=== PATIENT | female | born 1965 | race Caucasian/White ===

== ENCOUNTER → 2023-01-14 15:34 | Outpatient (BNVA) | payer BC, MEDICAID, SELFPAY | PROVIDERS: PCP Nurse Practitioner Family; Visit Provider Nurse Practitioner Family | DX: R07.9 Chest pain, unspecified (principal); L98.9 Disorder of the skin and subcutaneous tissue, unspecified; I10 Essential (primary) hypertension | CPT/HCPCS: 80053; 84484; 85025 ==

== ENCOUNTER 2023-02-02 13:22 | Outpatient (CLI) | payer BC, MEDICAID, SELFPAY ==
--- NOTE | 2023-02-02 13:53 | MM_ITS ---
WS: [id number] BILATERAL 3D TOMOSYNTHESIS DIGITAL SCREENING MAMMOGRAPHY WITH CAD CLINICAL INFORMATION: Z12.39 - Encounter for other screening for malignant neop... HISTORY: Screening mammogram. No current complaints. COMPARISON: None. TECHNIQUE: Bilateral CC and MLO views. FINDINGS: Scattered fibroglandular densities bilaterally. No suspicious focal mass, asymmetry, calcifications, or architectural distortion. No evidence of malignancy. MM/[place] [id number] IMPRESSION: BI-RADS: 1-Negative FOLLOW UP: 1 Year Follow-up Recommend return to annual screening mammography.
--- NOTE | 2023-02-02 15:00 | CT_ITS ---
WS: [id number] LDCT LUNG CANCER SCREENING HISTORY: Z12.2 - Encounter for screening for malignant neoplasm TECHNIQUE: Axial imaging performed from the apices to 1 cm below the costophrenic angles. Coronal and sagittal reformats are submitted with axial MIP series. All CT scans at [facility] use at least one of these dose optimization techniques: automated exposure control; mA and/or kV adjustment per patient size (includes targeted exams where dose is matched to clinical indication); or iterativ e reconstruction. DLP: 53.79 mGy.cm DIvol: Mean CTDIvol: 1.00 (mGy) COMPARISON: None available. Lungs: Biapical pleural thickening and scarring. 10 mm lobulated mass LEFT apex. No additional mass i s identified. Moderate centrilobular emphysema. No endobronchial lesion. Heart: Normal size heart with no pericardial effusion.. Other findings: No adenopathy. Mild atherosclerosis aorta. Normal size pulmonary artery. No adrenal m ass. Mild increase in thoracic kyphosis. Schmorl's node defects. Mild anterior wedging of T7, T8 and T10. CT/CT lung screening [id number] IMPRESSION: LUNG-RADS: 4A-Probably Suspicious FOLLOW UP: 3 Month LDCT OTHER FINDINGS (S MODIFIER): None. 3 month low-dose CT follow-up versus PET CT.
== END 2023-02-02 13:23 | disposition home or self-care (01) ==
LOC: RAD 13:26
PROVIDERS: PCP Nurse Practitioner Family; Visit Provider Nurse Practitioner Family
DX: Z12.31 Encounter for screening mammogram for malignant neoplasm of breast (principal); Z12.2 Encounter for screening for malignant neoplasm of respiratory organs
CPT/HCPCS: 71271; 77063; 77067

== ENCOUNTER 2023-02-18 16:27 | Outpatient (CLI) | payer BC, MEDICAID, SELFPAY ==
--- NOTE | 2023-02-18 17:00 | CT_ITS ---
WS: [id number] CT CHEST TECHNIQUE: Noncontrast CT of the chest with coronal and sagittal reformatted images. CLINICAL INFORMATION: abnormal Lung finding COMPARISON: None. DLP: All CT scans at [facility] use at least one of these dose optimization techniques: automated e xposure control; mA and/or kV adjustment per patient size (includes targeted exams where dose is matc hed to clinical indication); or iterative reconstruction. FINDINGS: Stable appearing spiculated lesion LEFT lung apex measuring 10 mm. This is similar to prior examinati ons. Moderate chronic emphysematous changes. No mediastinal or hilar lymphadenopathy. Moderate thoracic kyphosis. Schmorl's nodes in the mid thoracic spine with chronic anterior wedging. Pleural thickening in the lung apices. Hepatomegaly. Cholecystectomy clips. Adrenal glands are normal. CT/CT chest ION (PULM ONLY) [id number] IMPRESSION: Images obtained for intraoperative navigation.
== END 2023-02-18 16:28 | disposition home or self-care (01) ==
LOC: RAD 16:30
PROVIDERS: PCP Nurse Practitioner Family; Visit Provider Internal Medicine Pulmonary Disease
DX: J43.9 Emphysema, unspecified (principal); R91.8 Other nonspecific abnormal finding of lung field; R09.89 Other specified symptoms and signs involving the circulatory and respiratory systems
CPT/HCPCS: 36415; 71250; 82785; 86003

== ENCOUNTER 2023-03-07 05:36 | Outpatient (CLI) | payer BC, MEDICAID, SELFPAY ==
--- NOTE | 2023-03-07 08:00 | PETR_ITS ---
PROCEDURE INFORMATION: Exam: PET/CT Skull Base to Mid-thigh Exam date and time: 03/07/2023 9:22 AM Age: 57 years old Clinical indication: Abnormal findings; CT chest 02/19; Additional info: 10 mm lobulated mass left apex. LABS AND CLINICAL REPORTS: Glucose: 110 mg/dl Treatment strategy for malignancy (PET staging): Initial Staging (PI) TECHNIQUE: Imaging protocol: Following at least four-hour fasting and following the injection of radiopharmaceutical, low dose CT images were obtained. Then, PET images were obtained. Attenuation corrected images were constructed using the CT scan. Fused images of PET and CT were reviewed. The standardized uptake values (SUV) reported below are maximum values within a region of interest, expressed in gm/ml. Exam includes orbital meatal line to mid-thigh. Radiopharmaceutical: 11.63 mCi F-18 FDG (Fluorodeoxyglucose), IV. Time of imaging post radiopharmaceutical administration: 1 hour Injection site: Right antecubital COMPARISON: CT chest ION (PULM ONLY) [id number] 02/18/2023 4:39 PM, CT lung screening 02/02/2023 FINDINGS: Brain: Visualized brain has normal physiologic uptake. Pharynx: Physiologic appearing uptake in the region of the vocal cords and cricoid cartilage. Larynx: No abnormal uptake. Lungs, pleura and trachea: Mild bilateral centrilobular emphysematous changes are present. A solid nodule in the left lung apex measures 1.0 x 0.8 cm on series 3, image 37, SUV max 0.9. Heart: Normal physiologic uptake. Mediastinal space: No abnormal uptake. Liver: No abnormal uptake. Gallbladder and bile ducts: No abnormal uptake. Cholecystectomy clips are present. Pancreas: No abnormal uptake. Spleen: No abnormal uptake. Adrenal glands: No abnormal uptake. Kidneys and ureters: Normal physiologic uptake. Stomach and bowel: No abnormal uptake. Physiologic appearing uptake in the region of the ileocecal valve. Benign-appearing fat deposition in the wall of the right colon in its noted. In the region of the inferior cecum and intraluminal possible rounded soft tissue density nodule along the inferior margin of the ileocecal valve measuring 1.5 cm in diameter on series 3, image 124 is noted, SUV max 7.1. Reproductive: The uterus is not identified, likely surgically absent. No abnormal uptake. Vasculature: No abnormal uptake. There are diffuse atherosclerotic changes. Lymph nodes: No abnormal uptake. No lymphadenopathy in the head, neck, chest, abdomen, pelvis, and extremities. Bones/joints: No abnormal uptake in the visualized axial and appendicular skeleton. Mild diffuse degenerative changes in the spine are present. Moderate thoracic spine kyphosis. Soft tissues: No abnormal uptake in the visualized head, neck, chest, abdomen, pelvis, and extremities. METRICS: Mediastinal blood pool: SUV max 1.7 PET/PET skulltothigh INITIAL [id number] IMPRESSION: 1. A left upper lobe nodule noted on the prior examinations is not radiotracer avid which favors a benign etiology. Non hypermetabolic neoplastic etiologies cannot be entirely excluded from this exam. Consider 3 month follow-up CT for further surveillance. 2. Uptake in the region of the ileocecal valve is noted which appears physiologic. There is a possible intraluminal nodule inferior to the ileocecal valve with elevated uptake (SUV max 7.1). This may represent physiologic uptake, however localized inflammatory, infectious or malignant etiologies cannot be excluded. Evaluation of the bowel wall is limited without intraluminal contrast. 3. Additional nonurgent findings as detailed above.
== END 2023-03-07 05:37 | disposition home or self-care (01) ==
LOC: RAD 03-09 05:37
PROVIDERS: PCP Nurse Practitioner Family; Visit Provider Internal Medicine Pulmonary Disease
DX: R91.8 Other nonspecific abnormal finding of lung field (principal); R91.1 Solitary pulmonary nodule
CPT/HCPCS: 78815; A9552

== ENCOUNTER → 2023-04-22 09:48 | Outpatient (BNVA) | payer BC, MEDICAID, SELFPAY | PROVIDERS: PCP Nurse Practitioner Family; Visit Provider Nurse Practitioner Family | DX: R53.83 Other fatigue (principal); R53.1 Weakness; R91.1 Solitary pulmonary nodule; Z12.11 Encounter for screening for malignant neoplasm of colon | CPT/HCPCS: 80053; 80061; 82306; 82607; 83540; 84443; 85025 ==

== ENCOUNTER 2023-05-18 10:16 | Oncology outpatient (recurring) (ONCR) | payer BC, MEDICAID, SELFPAY | END 2023-05-28 23:59 | disposition home or self-care (01) | PROVIDERS: PCP Nurse Practitioner Family; Visit Provider Internal Medicine Medical Oncology | DX: D50.9 Iron deficiency anemia, unspecified (principal) ==

== ENCOUNTER 2023-06-22 10:08 | Emergency (ER) | payer BC, MEDICAID, SELFPAY ==
[2023-06-22 10:32] VITALS: BP 137/91; PULSE 95; RESP 16; TEMP 37; O2SAT 97; BMI 23.3
--- NOTE | 2023-06-22 10:36 | XRR_ITS ---
PROCEDURE INFORMATION: Exam: XR Chest Exam date and time: 06/22/2023 10:54 AM Age: 57 years old Clinical indication: Cough and shortness of breath; Patient HX: Lillie mcqueen TECHNIQUE: Imaging protocol: Radiologic exam of the chest. Views: 1 view. COMPARISON: CT chest ION (PULM ONLY) [id number] 02/18/2023 4:39 PM FINDINGS: Lungs: Unremarkable. No consolidation. Pleural spaces: Unremarkable. No pleural effusion. No pneumothorax. Heart/Mediastinum: Unremarkable. No cardiomegaly. Bones/joints: Mild scoliosis. XR/XR chest 1V portable [id number] IMPRESSION: No acute findings.
--- NOTE | 2023-06-22 11:02 | W.ED.COVID ---
HPI - COVID General: Chief Complaint: COVID symptoms Stated Complaint: covid+ Time Seen by Provider: 06/22/23 10:36 Source: patient Mode of arrival: ambulatory Limitations: no limitations Triage information: Has fever, cough or shortness of breath. No known COVID + exposure last 14 days History of Present Illness: Patient is a nice 57-year-old female with a history of HTN and COPD here after testing positive via home rapid antigen test on Thursday. 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 She states since then she has had body aches, cough, congestion. She states she tested herself on Thursday and was positive. She states she was told to come here by her work. complaint: known COVID positive Prior covid testing: yes, results known COVID 19 common symptoms: positive fever(s), non-productive cough, body aches, headache(s), loss of sense of smell and/or taste, throat pain, nasal congestion and nausea; negative vomiting or diarrhea COVID 19 other sytmptoms: negative chest pain or dizziness Onset (ago): day(s) Severity: mild Pertinent comorbid conditions: hypertension and COPD/respiratory disease Treatment prior to arrival: none COVID Results: No Data to Display Review of Systems Const: Reports: fever(s) and body aches Eyes: Denies: change in vision, blurry vision, photophobia, floaters or seeing flashes ENMT: Reports: throat pain, odynophagia and nasal congestion; Denies: ear or mastoid pain, nasal discharge or sinus pain Card: Denies: chest pain, palpitations, irregular heart rhythm, edema, swelling of feet/ankles, lightheadedness, syncope, pre-syncope, dyspnea on exertion, orthopnea, leg pain with exertion or acrocyanosis Resp: Reports: non-productive cough and chest congestion; Denies: wheezing or hemoptysis GI: Reports: nausea; Denies: abdominal pain, vomiting or diarrhea : Denies: flank pain, difficulty voiding, dysuria, urinary frequency, urinary urgency or urinary hesitancy Musc: Denies: neck pain, back pain, extremity pain or joint pain Skin/Breast: Denies: rash Neuro: Reports: headache(s); Denies: numbness in extremities, weakness in extremities, sensory changes or dizziness [facility] PFSH: Medical History Hypertension Social History Smoking and tobacco status: current every day smoker cigarettes Packs smoked per day: 1 Years cigarettes smoked: 40 [ Other cigarette details: currently smoking 0.5 ppd.] Second hand smoke exposure: Yes Smoking risk assessment/counseling performed?: No Alcohol intake: never Desire information about alcohol rehabilitation?: No Counseling given: No Substance/Drug Use: never Desire information about substance/drug rehabilitation?: No Counseling given: No Adopted: No Caregiver/support person: No Lives independently: Yes Household members: family Housing: House Marital status: Number of children: 3 Highest education level completed: Associate Degree: Occupational, Technical, Vocational Program service: No Current occupational status: unemployed Physical Exam Const: COMMON NORMALS: no acute distress, average body habitus, patient oriented x3, no limitations, healthy appearing, alert and well nourished GENERAL APPEARANCE: cooperative ORIENTATION/CONSCIOUSNESS: Yes awake, Yes oriented to person, Yes oriented to place and Yes oriented to time HENMT: COMMON NORMALS: normocephalic and atraumatic HEAD & SCALP: normal to inspection, normocephalic and atraumatic Eye: GENERAL EYE: appearance normal, both eyes and all related structures Neck/C-Spine: COMMON NORMALS: full ROM, no lymphadenopathy, no meningeal signs and no JVD Chest: COMMONS NORMALS: normal inspection of the chest and normal palpation of entire chest wall Resp: COMMON NORMALS: normal respiratory effort and clear to auscultation bilaterally AUSCULTATION: clear to auscultation bilaterally Cardio: COMMON NORMALS: no JVD, regular rate and regular rhythm RATE: regular rate RHYTHM: regular rhythm Extremity: GENERAL: Yes normal exam except as noted Neuro: MELONY COMA SCALE: document GCS findings Branch coma scale eye opening: Spontaneous Melony coma scale verbal response: Orientated Melony coma scale motor response: Obey commands Melony coma scale total score: 15 COMMON NORMALS: patient oriented x3, CN's II-XII intact bilaterally, moves all extremities, no focal motor deficits, no sensory deficits noted and gait normal SENSORIUM/ORIENTATION: Yes alert, Yes oriented to person, Yes oriented to place and Yes oriented to time MENINGEAL SIGNS: Yes no meningeal signs Skin: COMMON NORMALS: no rashes or lesions noted GENERAL SKIN EXAM: no rashes or lesions noted Course Vital Signs: Vital signs: Vital Signs Temperature 98.6 F 06/22/23 10:32 Pulse Rate 95 06/22/23 10:32 Respiratory Rate 16 06/22/23 10:32 Blood Pressure 137/91 06/22/23 10:32 Pulse Oximetry 97 06/22/23 10:32 Oxygen Delivery Me thod Room Air 06/22/23 10:32 [facility] - COVID Medical Decision Making Patient appears in no acute distress. Her vital signs are stable. CXR is normal. At this point there is no need to confirm positive test. She will be placed on oral Paxlovid and Dexamethasone given her history of HTN and COPD. Recommend monitoring symptoms closely. Return ED precautions given. Lab Data Radiology Impressions Chest X-Ray 06/22/23 10:36 IMPRESSION: No acute findings. No Data to Display All radiology interpretation(s) finalized by discharge Discharge Plan Discharge Patient Disposition: Home Clinical Impression: Suspected severe acute respiratory syndrome coronavirus 2 (SARS-CoV-2) infection Condition: Stable Prescriptions: New dexamethasone 6 mg tablet 6 mg PO DAILY Qty: 6 0RF Paxlovid 300 mg (150 mg x 2)-100 mg tablets,dose pack See Rx Instructions .ROUTE .COMPLEX Qty: 30 0RF Rx Instructions: take TWO 150 mg tablets of nirmatrelvir with ONE 100 mg tablet of ritonavir twice daily for 5 days No Action cholecalciferol (vitamin D3) 1,250 mcg (50,000 unit) capsule 50,000 unit PO .weekly Qty: 4 2RF albuterol 90 mcg/actuation aerosol 90 mcg inhalation DAILY budesonide-formoterol 80-4.5 mcg/actuation HFA aerosol inhaler 2 puff inhalation BID nitroglycerin 0.4 mg tablet, sublingual 0.4 mg sublingual Q5M PRN (Reason: chest pain) Qty: 30 2RF Rx Instructions: do not exceed 3 doses per episode mirtazapine 7.5 mg tablet 7.5 mg PO DAILY Qty: 30 2RF metoprolol succinate 50 mg tablet extended release 24 hr 50 mg PO BID Qty: 60 2RF lisinopril 40 mg tablet 40 mg PO DAILY Qty: 30 2RF simvastatin 40 mg tablet 40 mg PO DAILY Qty: 30 2RF Nicorette 2 mg mini lozenge 2 mg buccal Q8H PRN (Reason: nicotine cravings) Rx Instructions: buccally every q1-2h X 6 weeks, q2-4h X 3 weeks, q4-8h X 3 weeks, max 20 in 24 hours Discharge Orders: Discharge ED (Routine); Ordered 06/22/23 Ordered By: Collette Nunez Referrals: Val Mata FNP-C [Primary Care Provider] - Patient Instructions: COVID-19 (Coronavirus Disease 2019) (ED) Activity Restrictions/Additional Instructions: As we discussed a positive result via home antigen testing is confirmation of active COVID. Is no need to retest or verify today. As we discussed we are placing you on Paxlovid as well as steroids for treatment. You need to monitor symptoms closely and return to the emergency department for severe shortness of breath or difficulty breathing, chest pain, generally feeling worse or unwell, or any other concerns you may have. As we discussed you need to quarantine until at least day 5 of symptoms. IF symptoms are improving and you are fever free you may return to work with mask wearing for an additional 5 days. Coding Level of Care Code ED [employer] for [employer]
[2023-06-22 11:34] VITALS: O2SAT 97
== END 2023-06-22 11:36 | disposition home or self-care (01) ==
PROVIDERS: Emergency Provider Physician Assistant; PCP Nurse Practitioner Family
DX: Z20.822 Contact with and (suspected) exposure to COVID-19 (principal); I10 Essential (primary) hypertension; J44.9 Chronic obstructive pulmonary disease, unspecified; F17.210 Nicotine dependence, cigarettes, uncomplicated
CPT/HCPCS: 71045; 99283

== ENCOUNTER 2023-07-22 17:09 | Outpatient (CLI) | payer OTHER, BC, SELFPAY ==
--- NOTE | 2023-07-22 17:11 | CT_ITS ---
WS: [id number] CT chest wo con [id number] HISTORY: nodule f/u TECHNIQUE: Axial imaging performed through the thorax. Coronal and sagittal reformats are submitted. All CT scans at [facility] use at least one of these dose optimization techniques: automated exposure control; mA and/or kV adjustment per patient size (includes targeted exams where dose is mat ched to clinical indication); or iterative reconstruction. CONTRAST: Omnipaque 350; 100 mL IV. DLP: 307.42 mGy.cm COMPARISON: PET/CT 03/07/2023, CT chest 02/02/2023 and 02/18/2023 Lungs and central airway: Chronic emphysema. Hyperexpanded lungs. Lobulated irregular nodule in the L EFT apex measures 11 x 8 mm and is unchanged in size. This was described as PET/CT negative. Marked i ncrease in the AP diameter of the chest. No additional mass or nodule. Pleura: Normal. No pleural effusion. Heart and pericardium: Normal size heart with no pericardial effusion. Mediastinum and victor manuel: No mediastinum or hilar adenopathy. Vessels: Atherosclerosis aorta. Chest wall and lower neck: No soft tissue masses. Upper abdomen: Small hiatal hernia. Prior cholecystectomy. Small retroperitoneal lymph node on the LE FT was negative on PET/CT. Osseous structures: Marked increase in thoracic kyphosis. Mild anterior wedging of T7, T8 and a Schmo rl's node at T10. IMPRESSION: 1. Stable irregular nodule LEFT upper lobe measuring 11 x 8 mm. Noted to be negative on recent PET/CT imaging. 2. Chronic emphysema. No pneumonia. 3. Prior cholecystectomy.
== END 2023-07-22 17:10 | disposition home or self-care (01) ==
PROVIDERS: PCP Nurse Practitioner Family; Visit Provider Internal Medicine Pulmonary Disease
DX: R91.1 Solitary pulmonary nodule (principal); R43.9 Unspecified disturbances of smell and taste
CPT/HCPCS: 71250

== ENCOUNTER → 2023-10-21 08:58 | Outpatient (BNVA) | payer OTHER, BC, MEDICAID, SELFPAY | PROVIDERS: PCP Nurse Practitioner Family; Visit Provider Nurse Practitioner Family | DX: I10 Essential (primary) hypertension (principal); E55.9 Vitamin D deficiency, unspecified; J43.9 Emphysema, unspecified; E78.2 Mixed hyperlipidemia; J44.9 Chronic obstructive pulmonary disease, unspecified; R91.1 Solitary pulmonary nodule; Z12.11 Encounter for screening for malignant neoplasm of colon | CPT/HCPCS: 80053; 80061; 84443; 85025 ==

== ENCOUNTER → 2023-11-27 13:07 | Outpatient (BNVA) | payer BC, MEDICAID, SELFPAY | PROVIDERS: PCP Nurse Practitioner Family; Visit Provider Nurse Practitioner Family | DX: R05.9 Cough, unspecified (principal) | CPT/HCPCS: 87400; 87426 ==

== ENCOUNTER → 2023-12-02 14:20 | Outpatient (BNVA) | payer BC, MEDICAID, SELFPAY | PROVIDERS: PCP Nurse Practitioner Family; Visit Provider Nurse Practitioner Family | DX: J02.9 Acute pharyngitis, unspecified (principal); R06.02 Shortness of breath | CPT/HCPCS: 71046; 87071; 87880 ==

== ENCOUNTER 2023-12-25 10:49 | Outpatient (CLI) | payer BC, MEDICAID, SELFPAY ==
--- NOTE | 2023-12-25 11:00 | CT_ITS ---
WS: [id number] CT chest wo con [id number] HISTORY: 5 month f/u TECHNIQUE: Axial imaging performed through the thorax. Coronal and sagittal reformats are submitted. All CT scans at [facility] use at least one of these dose optimization techniques: automated exposure control; mA and/or kV adjustment per patient size (includes targeted exams where dose is mat ched to clinical indication); or iterative reconstruction. CONTRAST: None DLP: 334.59 mGy.cm COMPARISON: 02/02/2023, 07/22/2023 and PET/CT 03/07/2023 Lungs and central airway: Hyperexpansion of the lungs from centrilobular emphysema. Biapical pleural thickening. Reidentified is a lobulated solid nodule at the LEFT apex measuring 10.5 x 6.8 mm which h as not increased in size since 02/02/2023. This was also noted to be negative on PET/CT. Pleura: Normal. No pleural effusion. Heart and pericardium: Normal size heart with no pericardial effusion. Mediastinum and victor manuel: No mediastinum or hilar adenopathy. Vessels: Atherosclerosis thoracic aorta. No aneurysm. Normal sized pulmonary artery. Chest wall and lower neck: No soft tissue masses. Upper abdomen: Prior cholecystectomy. No adrenal mass. Osseous structures: Marked increase in thoracic kyphosis centered in the midthoracic spine. Mild ante rior wedging of T7 and T8. IMPRESSION: 1. No increase in size of the LEFT upper lobe lobulated nodule measuring 10.5 x 6.8 mm. Also negativ e on a prior PET/CT. 2. Advanced centrilobular emphysema. 3. Atherosclerosis thoracic aorta. 4. Cholecystectomy.
== END 2023-12-25 10:50 | disposition home or self-care (01) ==
LOC: RAD 10:49
PROVIDERS: PCP Nurse Practitioner Family; Visit Provider Internal Medicine Pulmonary Disease
DX: R91.1 Solitary pulmonary nodule (principal)
CPT/HCPCS: 71250

== ENCOUNTER → 2023-12-28 14:57 | Outpatient (BNVA) | payer BC, MEDICAID, SELFPAY | PROVIDERS: PCP Nurse Practitioner Family; Visit Provider Nurse Practitioner | DX: J44.89 Other specified chronic obstructive pulmonary disease (principal) | CPT/HCPCS: 85025 ==

== ENCOUNTER → 2023-12-30 08:58 | Outpatient (BNVA) | payer BC, MEDICAID, SELFPAY | PROVIDERS: PCP Nurse Practitioner Family; Visit Provider Nurse Practitioner | DX: J44.89 Other specified chronic obstructive pulmonary disease (principal) | CPT/HCPCS: 71046 ==